=== PATIENT | female | born 1995 | race African-American/Black ===

== ENCOUNTER 2020-07-05 06:49 | Emergency (ER) | payer MEDICAID ==
[~2020-07-05] VITALS: Ht 182.9 cm; Wt 70.0 kg
[2020-07-05 08:24] LABS: BASOPHILS % 0.4 % (0.0-2.0); EOSINOPHILS % 0.1 % (0.0-5.0); HEMOGLOBIN. 12.7 g/dL (12.0-16.0); LYMPHOCYTES % 7.1 % (20.0-50.0); MEAN CORPUSCULAR VOLUME 90.3 fL (81.0-99.0); MEAN PLATELET VOLUME 9.1 fl (7.4-10.4); MONOCYTES % 5.4 % (2.0-8.0); PLATELET 246 x1000/uL (130-400); RED BLOOD CELL COUNT 4.09 mill/uL (4.2-5.4); RED CELL DISTRIBUTION WIDTH 13.8 % (11.6-14.6)
[2020-07-05 08:28] LABS: CHLORIDE 105 mEq/L (98-107)
[2020-07-05 08:32] LABS: ETHANOL BLOOD < 10 mg/dL
[2020-07-05 08:45] LABS: HCG SCREEN NEGATIVE
[2020-07-05 09:27] LABS: CLARITY URINE CLEAR (CLEAR); COLOR URINE YELLOW (YELLOW); KETONES URINE 3+ (NEGATIVE); LEUKOCYTE ESTERASE URINE NEGATIVE (NEGATIVE); NITRITE URINE NEGATIVE (NEGATIVE); OCCULT BLOOD URINE NEGATIVE (NEGATIVE); PROTEIN URINE NEGATIVE (NEGATIVE); SPECIFIC GRAVITY URINE 1.013 (1.005-1.030); UROBILINOGEN URINE 0.2 E.U./dL (0.2-1.0)
[2020-07-05] MEDS ORDERED: SODIUM CHLORIDE 0.9% 1,000 ML IV ONE (10:14)
[2020-07-05 11:42] LABS: *AMPHETAMINES SCREEN URINE NEGATIVE (NEGATIVE); *BARBITURATES SCREEN URINE NEGATIVE (NEGATIVE); *BENZODIAZEPINES SCREEN URINE NEGATIVE (NEGATIVE); *COCAINE SCREEN URINE NEGATIVE (NEGATIVE); METHADONE URINE SCREEN NEGATIVE (NEGATIVE); OPIATES URINE SCREEN NEGATIVE (NEGATIVE); PHENCYCLIDINE URINE SCREEN NEGATIVE (NEGATIVE)
[2020-07-05 11:57] LABS: CANNABINOID URINE SCREEN PRESUMTIVE POSITIVE (NEGATIVE)
[2020-07-06] MEDS ORDERED: OLANZAPINE 5MG TABLET PO STA (19:49)
[2020-07-06] MEDS ORDERED: OLANZAPINE 10 MG/VIAL IM ONE (20:00)
[2020-07-07] MEDS ORDERED: LORAZEPAM 1MG TABLET PO ONE ×2 (02:00→10:30)
[2020-07-08] MEDS ORDERED: LORAZEPAM 1MG TABLET PO ONE (00:15)
[2020-07-08] MEDS ORDERED: HALOPERIDOL LACTATE 5MG/ML VIAL IM ONE (06:00)
[2020-07-08] MEDS ORDERED: LORAZEPAM 2MG/ML CPJ IM ONE (06:00)
[2020-07-08 08:12] LABS: CLARITY URINE TURBID (CLEAR); COLOR URINE ORANGE (YELLOW); KETONES URINE NEGATIVE (NEGATIVE); LEUKOCYTE ESTERASE URINE 2+ (NEGATIVE); NITRITE URINE POSITIVE (NEGATIVE); OCCULT BLOOD URINE 3+ (NEGATIVE); PH URINE 5.5 (4.5-8.0); PROTEIN URINE 3+ (NEGATIVE); UROBILINOGEN URINE 0.2 E.U./dL (0.2-1.0)
[2020-07-08] MEDS: AMOXICILLIN 500 MG CAPSULE PO SCH ×3 (10:00→21:59)
[2020-07-08] MEDS ORDERED: ROCURONIUM BROMIDE 10MG/ML VIAL 5ML IV ONE (16:48)
[2020-07-08] MEDS ORDERED: NEOSTIGMINE METHYLSULFATE 1MG/ML 10 ML VIAL ONE (18:03)
[2020-07-08] MEDS ORDERED: GLYCOPYRROLATE 0.2 MG/ML 2ML VIAL ONE ×2 (18:03→18:11)
[2020-07-08] MEDS ORDERED: LABETALOL HCL 5MG/ML VIAL 20ML IV ONE (18:05)
[2020-07-08] MEDS ORDERED: LIDOCAINE HCL 1% 20ML VIAL (Pyxis) INJ ONE (18:05)
[2020-07-08] MEDS ORDERED: SODIUM CHLORIDE 0.9% 10ML VIAL ONE (18:05)
[2020-07-08] MEDS ORDERED: CEFAZOLIN SODIUM 1000MG/VIAL ONE (18:05)
[2020-07-08] MEDS ORDERED: QUETIAPINE FUMARATE 50MG TABLET PO SCH (21:00)
[2020-07-08 22:32] VITALS: BP 112/74
== END 2020-07-08 22:52 | disposition home or self-care (01) ==
LOC: ER 06:49
DX: Z03.818 Encounter for observation for suspected exposure to other biological agents ruled out (principal); S61.511A Laceration without foreign body of right wrist, initial encounter; R45.851 Suicidal ideations; R00.0 Tachycardia, unspecified; Z59.0 Homelessness; W26.8XXA Contact with other sharp object(s), not elsewhere classified, initial encounter; Y93.89 Activity, other specified; Y92.89 Other specified places as the place of occurrence of the external cause; Y99.8 Other external cause status
CPT/HCPCS: 36415; 80053; 80305; 80307; 80320; 80329; 81003; 81025; 82962; 84703; 85025; 87086; 87635; 93005; 96360; 96361; 96372; 99285; C9803; J0690; J1630; J2060; J2710; J3490; Z7610; G0480

== ENCOUNTER 2025-01-21 13:05 | Emergency (ER) | payer MEDICAID ==
[~2025-01-21] VITALS: Ht 182.9 cm; Wt 86.0 kg
[2025-01-21 13:15] VITALS: O2SAT 98
[2025-01-21 14:30] LABS: CLARITY URINE CLOUDY (CLEAR); COLOR URINE DARK YELLOW (YELLOW); GLUCOSE URINE NEGATIVE (NEGATIVE); KETONES URINE 3+ (NEGATIVE); LEUKOCYTE ESTERASE URINE NEGATIVE (NEGATIVE); NITRITE URINE NEGATIVE (NEGATIVE); OCCULT BLOOD URINE NEGATIVE (NEGATIVE); PROTEIN URINE TRACE (NEGATIVE); SPECIFIC GRAVITY URINE 1.032 (1.005-1.030)
[2025-01-21 14:56] LABS: *AMPHETAMINES SCREEN URINE NEGATIVE (NEGATIVE); *BARBITURATES SCREEN URINE NEGATIVE (NEGATIVE); *BENZODIAZEPINES SCREEN URINE NEGATIVE (NEGATIVE); *COCAINE SCREEN URINE NEGATIVE (NEGATIVE)
[2025-01-21 14:57] LABS: CANNABINOID URINE SCREEN NEGATIVE (NEGATIVE); ECSTASY MDMA SCREEN URINE NEGATIVE (NEGATIVE); METHADONE URINE SCREEN NEGATIVE (NEGATIVE); OPIATES URINE SCREEN NEGATIVE (NEGATIVE); PHENCYCLIDINE URINE SCREEN NEGATIVE (NEGATIVE)
[2025-01-21 15:04] LABS: MUCUS URINE 3+ /lpf (< = 2+); SQUAMOUS EPITHELIAL CELL URINE 2+ /lpf (RARE/1+)
[2025-01-21 15:06] LABS: BACTERIA URINE 2+
[2025-01-21 15:26] LABS: CHLORIDE 102 mEq/L (98-107); POTASSIUM 3.9 mEq/L (3.5-5.1); SODIUM 140 mEq/L (136-145)
[2025-01-21 15:27] LABS: CARBON DIOXIDE 27 mEq/L (21-32)
[2025-01-21 15:28] LABS: BASOPHILS % 0.6 % (0.0-2.0); CALCIUM 9.4 mg/dL (8.7-10.4); EOSINOPHILS % 0.3 % (0.0-5.0); HEMATOCRIT. 35.8 % (36.0-48.0); HEMOGLOBIN. 11.9 g/dL (12.0-16.0); LYMPHOCYTES % 25.2 % (20.0-50.0); MEAN CORPUSCULAR HEMOGLOBIN 30.4 pg (28.0-32.0); MEAN CORPUSCULAR HGB CONC 33.4 g/dL (31.0-37.0); MEAN CORPUSCULAR VOLUME 91.1 fL (81.0-99.0); MONOCYTES % 8.9 % (2.0-8.0); PLATELET 366 x1000/uL (130-400); RED BLOOD CELL COUNT 3.93 mill/uL (4.2-5.4); RED CELL DISTRIBUTION WIDTH 14.3 % (11.6-14.6); WHITE BLOOD COUNT 9.2 x1000/uL (4.5-11.0)
[2025-01-21 15:32] LABS: CREATININE 0.6 mg/dL (0.6-1.0); GLUCOSE 74 mg/dL (70-105)
[2025-01-21 15:33] LABS: UREA NITROGEN BLOOD 11 mg/dL (9-23)
[2025-01-21 15:34] LABS: ACETAMINOPHEN < 2 ug/mL (10-30)
[2025-01-21 15:40] LABS: HCG SCREEN NEGATIVE
[2025-01-21 15:41] LABS: ETHANOL BLOOD < 10 mg/dL (<10)
[2025-01-21] MEDS: NITROFURANTOIN 100MG M/M CAPSULE PO SCH (21:17)
[2025-01-23 12:16] VITALS: BP 127/78; PULSE 82; RESP 18; TEMP 36.7; O2SAT 99
== END 2025-01-23 12:30 ==
LOC: ER 13:05
DX: R45.851 Suicidal ideations (principal); R44.0 Auditory hallucinations; F31.9 Bipolar disorder, unspecified; Z20.822 Contact with and (suspected) exposure to COVID-19
CPT/HCPCS: 36415; 80048; 80305; 80307; 80320; 80329; 81003; 84703; 85025; 87426; 99285; G0480